=== PATIENT | female | born 1950 ===

== ENCOUNTER 2019-02-28 21:59 | Emergency (ER) | payer SELFPAY ==
[2019-02-28 22:50] LABS: BASO # 0.1 K/uL (0.0-0.2); BASO % 0.9 % (0.0-2.0); EOS # 0.1 K/uL (0.0-0.7); EOS % 1.4 % (0.0-4.0); HEMOGLOBIN 12.5 g/dL (11.0-16.0); LYMPH # 1.7 K/uL (1.0-4.3); LYMPH % 25.2 % (20.0-40.0); MEAN CORPUSCULAR HEMOGLOBIN 29.3 pg (27.0-31.0); MEAN CORPUSCULAR HGB CONC 33.3 g/dL (33.0-37.0); MEAN PLATELET VOLUME 8.3 fL (7.2-11.7); MONO # 0.5 K/uL (0.0-0.8); MONO % 7.5 % (0.0-10.0); NEUT # 4.3 K/uL (1.8-7.0); NRBC % 0.1 % (0.0-2.0); RBC 4.25 Mil/uL (3.80-5.20); RED CELL DISTRIBUTION WIDTH 13.4 % (11.5-14.5); WHITE BLOOD COUNT 6.6 K/uL (4.8-10.8)
[2019-02-28 23:02] LABS: ALB/GLOB RATIO 1.3 (1.0-2.1); ALBUMIN 4.8 g/dL (3.5-5.0); ALT/SGPT 11 U/L (9-52); AST/SGOT 60 U/L (14-36); BLOOD UREA NITROGEN 16 mg/dL (7-17); CALCIUM 9.4 mg/dl (8.6-10.4); GFR NON-AFRICAN AMERICAN > 60
--- NOTE | 2019-02-28 23:11 | C.PDOC ---
History Of Present Illness 69 year old female with PMHx of HTN presents to the ED c/o elevated blood pressure. Patient took her BP at home and ot was 150/160 systolic. Patient reports she is compliant with her blood pressure medications. Patient also c/o posterior neck pain that worsens with movement. Patient denies visual changes, headache, CP, SOB, injury, fall, trauma, weakness, numbness, slurred speech. Time Seen by Provider: 02/28/19 22:12 Chief Complaint (Nursing): High Blood Pressure History Per: Patient History/Exam Limitations: no limitations Onset/Duration Of Symptoms: Hrs Current Symptoms Are (Timing): Still Present Quality Of Symptoms: Asymptomatic Exacerbating Factor(s): Pos: None Recent travel outside of the [place]: No Additional History Per: Patient Past Medical History Reviewed: Historical Data, Nursing Documentation, Vital Signs Vital Signs: Last Vital Signs Temp 98.8 F 02/28/19 22:16 Pulse 88 02/28/19 22:16 Resp 20 02/28/19 22:16 BP 150/98 H 02/28/19 22:17 Pulse Ox 97 02/28/19 22:16 - Medical History PMH: HTN Denies: Chronic Kidney Disease Surgical History: No Surg Hx Family History: States: Unknown Family Hx - Social History Hx Alcohol Use: No Hx Substance Use: No - Immunization History Hx Tetanus Toxoid Vaccination: No Hx Influenza Vaccination: Yes Hx Pneumococcal Vaccination: No Review Of Systems Constitutional: Negative for: Fever, Chills Eyes: Negative for: Vision Change Cardiovascular: Negative for: Chest Pain, Palpitations Respiratory: Negative for: Shortness of Breath Gastrointestinal: Negative for: Nausea, Vomiting, Abdominal Pain Musculoskeletal: Positive for: Neck Pain Skin: Negative for: Rash Neurological: Negative for: Weakness, Numbness, Headache, Dizziness Physical Exam - Physical Exam Appears: Non-toxic, No Acute Distress Skin: Normal Color, Warm, Dry Head: Atraumatic, Normacephalic Eye(s): bilateral: Normal Inspection, PERRL, EOMI Neck: Normal ROM, No Midline Cervical Tenderness, Paracervical Tenderness, Supple Chest: Symmetrical Cardiovascular: Rhythm Regular Respiratory: Normal Breath Sounds, No Rales, No Rhonchi, No Wheezing Gastrointestinal/Abdominal: Soft, No Tenderness, No Guarding, No Rebound Extremity: Normal ROM, No Tenderness, No Swelling Neurological/Psych: Oriented x3, Normal Speech, Normal Cognition Gait: Steady ED Course And Treatment - Laboratory Results Result Diagrams: 02/28/19 22:45 02/28/19 22:45 Lab Results: Total Bilirubin 1.1 mg/dL (0.2-1.3) 02/28/19 22:45 AST 60 U/L (14-36) H 02/28/19 22:45 ALT 11 U/L (9-52) 02/28/19 22:45 Alkaline Phosphatase 114 U/L (38-126) 02/28/19 22:45 Total Protein 8.7 g/dL (6.3-8.3) H 02/28/19 22:45 Albumin 4.8 g/dL (3.5-5.0) 02/28/19 22:45 Globulin 3.8 gm/dL (2.2-3.9) 02/28/19 22:45 Albumin/Globulin Ratio 1.3 (1.0-2.1) 02/28/19 22:45 ECG: Interpreted By Me, Viewed By Me ECG Rhythm: Sinus Rhythm, Nonspecific Changes (ST changes) Rate From EC (BPM) O2 Sat by Pulse Oximetry: 97 (ON RA) Pulse Ox Interpretation: Normal - Radiology CXR: Interpreted by Me, Viewed By Me CXR Interpretation: Yes: No Acute Disease. No: Infiltrates - Other Rad C-spine x-Ray X-Ray: Interpreted by Me, Viewed By Me Interpretation: No acute disease Medical Decision Making Medical Decision Making: Assessment: HTN Plan: * EKG * CXR * C-spine X-Ray * Labs * Toradol 30 mg IVP Patient reports improvement of symptoms, stable for D/C and advised to follow up with PMD. Disposition Counseled Patient/Family Regarding: Studies Performed, Diagnosis, Need For Followup, Rx Given - Disposition Referrals: [facility] [Outside] Disposition: HOME/ ROUTINE Disposition Time: 23:12 Condition: STABLE Additional Instructions: follow up with your doctor within 2 days call to make an appointment take pain medication as needed for neck pain return to ER if symptoms worsens or progress Prescriptions: Naproxen [Naprosyn] 500 mg PO BID PRN #16 tab PRN Reason: Pain, Moderate (4-7) Instructions: Neck Pain, High Blood Pressure (DC) Forms: Gen Discharge Inst Malagasy, [facility] (Malagasy) - Clinical Impression Clinical Impression: Hypertension, Neck pain - Scribe Statement The provider has reviewed the documentation as recorded by the Scribe Alvaro Fuentes All medical record entries made by the Scribe were at my direction and per sonally dictated by me. I have reviewed the chart and agree that the record accurately reflects my personal performance of the history, physical exam, medical decision making, and the department course for this patient. I have also personally directed, reviewed, and agree with the discharge instructions and disposition.
[2019-02-28 23:40] VITALS: BP 120/67; PULSE 80; RESP 18; TEMP 97.6
[2019-02-28 23:46] VITALS: O2SAT 97
--- NOTE | 2019-03-01 09:12 | RAD ---
Date of service: 02/28/2019 HISTORY: Shortness of breath COMPARISON: None available. TECHNIQUE: 1 view obtained. FINDINGS: LUNGS: Mild patchy increased markings at the lung bases which may be related to prominent breast shadows. Correlation with lateral view may be helpful. PLEURA: No significant pleural effusion identified, no pneumothorax apparent. CARDIOVASCULAR: Aortic atherosclerotic calcification present. Tortuous ectatic aorta. Normal cardiac size. No pulmonary vascular congestion. OSSEOUS STRUCTURES: Degenerative changes in the spine. VISUALIZED UPPER ABDOMEN: Normal. OTHER FINDINGS: None. IMPRESSION: Mild patchy increased markings at the lung bases which may be related to prominent breast shadows. Correlation with lateral view may be helpful.
--- NOTE | 2019-03-01 09:37 | RAD ---
Cervical spine four views HISTORY: Neck pain. COMPARISON: None available. FINDINGS: Cervical spine visualized from C1 through C7. Multilevel disc space narrowing most prominent at the C4-5, C5-6, and C6-7 levels with associated posterior disc osteophyte complexes. Anterior osteophytosis at the C4 through C7 levels. No significant prevertebral soft tissue swelling. No evidence of acute displaced fracture. Impression: Degenerative changes. If pain persists, consider correlation with MRI.
--- NOTE | 2019-03-02 20:43 | CARD ---
APPROVED REPORT Date of service: 02/28/2019 EKG Measurement Heart [id number] <Conclusion> Normal sinus rhythm Nonspecific ST abnormality Abnormal ECG
== END 2019-02-28 23:40 | disposition home or self-care (01) ==
LOC: C.ER 21:59
DX: I10 Essential (primary) hypertension (principal); M54.2 Cervicalgia
CPT/HCPCS: 71045; 72040; 80053; 84484; 85025; 93005; 96374; 99284; J1885